=== PATIENT | female | born 1960 | race Caucasian/White ===

== ENCOUNTER 2024-02-25 08:48 | Day surgery (SDC) | payer BC, SELFPAY ==
[2024-02-25 09:16] VITALS: BMI 35.9
[2024-02-25] MEDS: SODIUM CHLORIDE 0.9 % (FLUSH) 10 ML SYRINGE IVF (09:19)
[2024-02-25] MEDS: LACTATED RINGERS 1000 ML 1,000 ML 100 ML IV (09:19)
[2024-02-25 09:34] VITALS: BP 148/97; PULSE 57; RESP 20; TEMP 36.7; O2SAT 99
[2024-02-25] MEDS: CEFAZOLIN 2 GM INJ IVP (11:40)
[2024-02-25] MEDS: BUPIVACAINE 0.25% 30 ML 10 ML INJECTION (11:40)
--- NOTE | 2024-02-25 11:55 | SUR.OPER ---
PATIENT QUESTIONS ANSWERED SATISFACTORILY PREOPERATIVELY.? PATIENT BROUGHT TO OR #4 PER CART.? Patient positioned supine on OR #4 bed.? The perioperative?team supported arms bilaterally on arm boards.? Final approval of positioning by surgeon.?
[2024-02-25 12:17] VITALS: BP 117/71; PULSE 72; RESP 16; TEMP 36.8; O2SAT 96
--- NOTE | 2024-02-25 12:18 | W.ANESCHARGE ---
Anesthesia Charges Start Date/Time Anesthesia Start Date: 02/25/24 Anesthesia Start Time: 11:34 Stop Date/Time Anesthesia Stop Date: 02/25/24 Anesthesia Stop Time: 12:17
--- NOTE | 2024-02-25 12:24 | W.PODPROC_ITS ---
Date of Procedure: 02/25/24 Surgeon: Adarsh Wadsworth DPM Pre-op Diagnosis: Hammertoe 5th digit right Post-op Diagnosis: Hammertoe 5th digit right Type of Procedure: Hammertoe repair via arthroplasty 5th digit right Indications: Patient has had ongoing pain to her 5th toe with recurring hammertoe deformity. She has elected to have surgical correction to continued pain and sores developing. I reviewed the procedure, recovery, expectation potential complications. These include but are not limited to: poor wound healing, infection, continued pain, recurrence, potential need for future surgery, deep venous thrombosis, pulmonary embolism possible . She understands risks written consent was obtained. Site marked. Procedure Description: Patient brought the operating room placed supine position on the operating room table. IV sedation was initiated local anesthetic injected the right foot. She was prepped and draped in a sterile fashion. Standard time-out protocol followed. The right foot was exsanguinated the tourniquet inflated. A semi el liptical incision was made in a proximal lateral to distal medial orientation. Skin wedge was removed which included the callus tissue. Transverse incision made through the PIPJ false joint. The extensor tendon soft tissues reflected away from the distal end of the proximal phalanx. Oscillating saw used to resect approximately 4 mm of the proximal phalanx. Blunt dissection was carried plantar and the flexor tendons released. Wound was irrigated normal sterile saline. Extensor tendon was repaired with 4-0 Vicryl. Skin was then repaired with 4-0 Prolene. The toe sat in a much improved position. Sterile dressing applied. Tourniquet was released and normal capillary fill time returned the digit. Patient tolerated anesthesia procedure well was transferred from OR to same-day surgery vital signs stable and vascular status intact. She will be discharged per same-day surgery protocol. She was given both written and verbal postop instructions. She is weight-bearing as tolerated. She will follow up in clinic in 2 days. Complications: None apparent Anesthesia: MAC and local Hemostasis: ankle Estimated blood loss (mL): 2 Specimens: none sent Disposition: same day
[2024-02-25 12:30] VITALS: BP 136/91; PULSE 61; RESP 16; O2SAT 95
[2024-02-25 12:45] VITALS: BP 151/82; PULSE 58; RESP 16; O2SAT 99
== END 2024-02-25 13:02 | disposition home or self-care (01) ==
PROVIDERS: Visit Provider Podiatrist
PROC: (CPT 28285; principal; 2024-02-25 12:30)
DX: M20.41 Other hammer toe(s) (acquired), right foot (principal)
CPT/HCPCS: 28285; 01480; J0665; J0690; J2704; J3010; J7120